=== PATIENT | female | born 1940 | race Caucasian/White ===

== ENCOUNTER → 2017-02-21 | Outpatient (CLI) | payer MEDICARE, OTHER ==
--- NOTE | 2017-02-22 07:58 | RAD ---
Left fingers three views INDICATION: Finger pain small finger IMPRESSION: There is an oblique mildly displaced fractures of the base of the fifth metacarpal. Bones are osteopenic. No phalangeal fracture. No major articular surface disruption noted. Electronically signed by: Codey Hagan MD 02/22/2017 7:58 AM CDT
== END | disposition home or self-care (01) ==
LOC: RAD 08:15
PROVIDERS: ATTEND Orthopaedic Surgery
DX: M79.645 Pain in left finger(s) (principal)

== ENCOUNTER → 2017-03-05 | Outpatient (CLI) | payer OTHER ==
--- NOTE | 2017-03-05 16:41 | RAD ---
EXAM DESCRIPTION: Fingers,Left CLINICAL HISTORY: 76 years Female, FRACTURE COMPARISON: None. FINDINGS: A subtle minimally displaced fracture at the base of the fifth metacarpal is present with slight angulation and displacement noted. Fifth finger is intact and no additional abnormalities are noted. IMPRESSION: Fracture of base of the fifth metacarpal. Electronically signed by: Antoine Locke MD 03/05/2017 4:41 PM CDT
== END | disposition home or self-care (01) ==
LOC: RAD 09:27
PROVIDERS: ATTEND Orthopaedic Surgery
DX: S62.301D Unspecified fracture of second metacarpal bone, left hand, subsequent encounter for fracture with routine healing (principal)

== ENCOUNTER → 2017-03-18 | Outpatient (CLI) | payer OTHER ==
--- NOTE | 2017-03-18 08:47 | RAD ---
EXAM DESCRIPTION: Fingers,Left CLINICAL HISTORY: 76 years, Female, LEFT 5TH MEATCARPAL FX COMPARISON: February 21 FINDINGS: Fracture base of fifth metatarsal again identified. This is barely visualized on images of the fifth digit. Fracture is impacted and slightly medially subluxed. Minimal if any apparent radiographic interval healing IMPRESSION: Stable alignment of impacted fracture proximal fifth metacarpal. Minimal if any apparent radiographic healing Electronically signed by: Arley Cox MD 03/18/2017 8:46 AM CDT
== END | disposition home or self-care (01) ==
LOC: RAD 08:00
PROVIDERS: ATTEND Orthopaedic Surgery
DX: S62.307A Unspecified fracture of fifth metacarpal bone, left hand, initial encounter for closed fracture (principal); X58.XXXA Exposure to other specified factors, initial encounter

== ENCOUNTER → 2017-04-19 | Outpatient (CLI) | payer OTHER ==
--- NOTE | 2017-04-19 15:47 | RAD ---
EXAM DESCRIPTION: Hand,Left 3 Views CLINICAL HISTORY: 76 years Female, CLOSED FX OF 5TH METACARPAL BONE COMPARISON: March 18, 2017 FINDINGS: 3 views of the left hand show cortical irregularity involving the base of the fifth metacarpal likely related to an old healed or healing fracture at this location. No acute fracture or malalignment is seen. No radiopaque foreign body or soft tissue gas. IMPRESSION: Old healed or healing fifth metacarpal base fracture. No acute abnormality. Electronically signed by: Justin Nassar MD 04/19/2017 3:45 PM CDT Workstation: [id number]
== END | disposition home or self-care (01) ==
LOC: RAD 08:46
PROVIDERS: ATTEND Orthopaedic Surgery
DX: S62.307D Unspecified fracture of fifth metacarpal bone, left hand, subsequent encounter for fracture with routine healing (principal)

== ENCOUNTER 2017-05-16 15:12 | Inpatient (IN) | payer MEDICARE, OTHER ==
[2017-05-16] MEDS ORDERED: PANTOPRAZOLE SODIUM IV 40 MG VIAL IV ONE (15:35)
[2017-05-16] MEDS ORDERED: ONDANSETRON INJ 4 MG/2 ML VIAL IV ONE (15:35)
[2017-05-16] MEDS ORDERED: LIDOCAINE VIS-MYLANTA 30 ML UD PO ONE (15:35)
[2017-05-16] MEDS ORDERED: SUCRALFATE 1 GM/10 ML 1 GM UD PO ONE (15:35)
--- NOTE | 2017-05-16 16:02 | RAD ---
EXAM DESCRIPTION: Abdomen Series CLINICAL HISTORY: 76 years Female, epigastric pain COMPARISON: None. FINDINGS: The cardiomediastinal silhouette is unremarkable. There is no airspace consolidation or pleural effusion. There is no free subdiaphragmatic gas or intra-abdominal air fluid level. There is a moderate amount of stool and gas scattered throughout the colon, but the bowel gas pattern is nonobstructive. No suspicious intra-abdominal calcification or mass is identified. Degenerative and postoperative changes are noted in the lumbar spine. IMPRESSION: No obstruction, pneumoperitoneum or other acute intra-abdominal abnormality. Electronically signed by: Justin Nassar MD 05/16/2017 4:00 PM CDT Workstation: [facility]ITALSensicast SystemsEMORY [facility]
--- NOTE | 2017-05-16 17:22 | CT ---
EXAM DESCRIPTION: Abdoment/Pelvis w/o Contrast CLINICAL HISTORY: 76 years Female, epigastric pain, elev bili, amylase and lipase. COMPARISON: None. TECHNIQUE: Transaxial images were obtained without intravenous or oral contrast media. Sagittal and coronal reconstruction was performed.This exam was performed according to our departmental dose-optimization program, which includes automated exposure control, adjustment of the mA and/or kV according to patient size and/or use of iterative reconstruction technique. FINDINGS: A hiatus hernia is observed. The lung bases are clear. The liver and spleen are normal in appearance. A gallstone is observed in the gallbladder. The gallbladder is distended. No adrenal masses are detected. A small ventral hernia is observed anterior to the liver containing fat. Very mild stranding is observed about the body the pancreas and may represent early evidence of pancreatitis. No retroperitoneal adenopathy is observed. Calcific atherosclerotic changes observed in the abdominal aorta without evidence of aneurysmal dilatation. Imaging of the kidneys reveals no evidence of hydronephrosis mass cyst or calcification. A second small ventral hernia is also observed inferiorly containing fat it is near the umbilicus. The uterus and adnexa are unremarkable. No free fluid is observed. The appendix is identified and is normal in appearance. The exam reveals evidence of a posterior fusion in the lower lumbar spine. There is anterior subluxation of L4 on L5. Degenerative changes are observed. IMPRESSION: 1. Hiatus hernia. 2. Cholelithiasis with a distended gallbladder. 3. Very minimal stranding is observed about the body the pancreas and may represent early evidence of pancreatitis. 4. Small ventral hernias are observed containing fat. 5. There is evidence of prior posterior fusion of the lumbar spine with an anterior subluxation of L4 on L5. Electronically signed by: Sonido Bergman MD 05/16/2017 5:20 PM CDT
--- NOTE | 2017-05-16 17:40 | US ---
EXAM DESCRIPTION: Abdomen,Limited CLINICAL HISTORY: elev bili, alk phos, amylase, lipase COMPARISON: None Available. TECHNIQUE: Right upper quadrant ultrasound] FINDINGS: The liver has a normal appearance. There is no intrahepatic bile duct dilatation. The common bile duct measures 8 mm. The gallbladder is distended and has a gallstone within it The pancreas is poorly seen. The upper abdominal aorta and the inferior vena cava are unremarkable. The right kidney is normal in size, shape, and echotexture. IMPRESSION: 1. The common bile duct is mildly dilated measuring 8 mm. 2. The gallbladder is distended and has a gallstone within it. Electronically signed by: Sonido Bergman MD 05/16/2017 5:39 PM CDT
[2017-05-16] MEDS ORDERED: SODIUM CHLORIDE 0.9% 1000ML 1,000 ML IVS ONE (17:47)
[2017-05-16] MEDS ORDERED: HYDROmorphone HCL INJ 2 MG/ML VIAL IV ONE (17:47)
--- NOTE | 2017-05-16 17:53 | ED.PDOC ---
History of Present Illness - General Chief Complaint: Abdominal Pain Stated Complaint: epigastric pain Time Seen by Provider: 05/16/17 15:34 Source: patient, family Exam Limitations: no limitations - History of Present Illness Initial Comments: The patient is a 76-year-old female presenting to the emergency room secondary to epigastric pain along with nausea and 2 episodes of vomiting starting last night. She felt like it was heartburn but the medications were not making it better. She showed up to her primary care doctor today who sent her to the emergency room primarily due to her bradycardia. I gave her a dose of Phenergan and sent her this way. She apparently has a long-standing history of sinus bradycardia with PVCs and has seen Dr. Birmingham in [place] for this who has recommended no intervention. She is not hypotensive. She is not dizzy. She did get a little bit dizzy after the Phenergan shot. No history of pancreatitis. No history of significant gastritis. She does have 2 small known ventral hernias. No evidence of obstruction. She does have some mild constipation seen on x-ray here today. No fevers. No history of any gallbladder or pancreas issues. No recurrent urinary tract infections. Timing/Duration: 24 hours Severity: moderate Improving Factors: nothing Worsening Factors: nothing Associated Symptoms: loss of appetite, malaise, nausea/vomiting Allergies/Adverse Reactions: Allergies NO KNOWN ALLERGY Allergy (Verified 05/16/17 15:37) Review of Systems - Review of Systems Constitutional: States: malaise EENTM: States: no symptoms reported Respiratory: States: no symptoms reported Cardiology: States: no symptoms reported Gastrointestinal/Abdominal: States: abdominal pain, constipation - mild, nausea , vomiting Genitourinary: States: no symptoms reported Musculoskeletal: States: no symptoms reported Skin: States: no symptoms reported Neurological: States: no symptoms reported Endocrine: States: no symptoms reported All other Systems: No Change from Baseline Past Medical History (General) - Patient Medical History Hx Seizures: No Hx Stroke: No Hx Dementia: No Hx Asthma: No Hx of COPD: No Hx Cardiac Disorders: No Hx Congestive Heart Failure: No Hx Pacemaker: No Hx Hypertension: Yes Hx Thyroid Disease: No Hx Diabetes: No Hx Gastroesophageal Reflux: No Hx Renal Disease: No Hx of HIV: No Hx MRSA: No - Social History Hx Tobacco Use: No - Triage Comment ED Triage Comment: Abd pain that started yesterday. Today had gotten worse was sent to ER from urgent care. Family Medical History - Family History Mother Family History: Unknown Living Status: Unknown Physical Exam - Physical Exam General Appearance: Alert, No apparent distress Eye Exam: bilateral normal Ears, Nose, Throat: hearing grossly normal, normal ENT inspection, normal pharynx Neck: non-tender, full range of motion, supple Respiratory: lungs clear, normal breath sounds, no respiratory distress, no accessory muscle use Cardiovascular/Chest: normal peripheral pulses, no edema, bradycardia Peripheral Pulses: radial,right: 2+, radial,left: 2+, dorsalis pedis,right: 2+, dorsalis pedis,left: 2+ Gastrointestinal/Abdominal: soft, other - epigastric discomfort palpation. No definite palpable mass. Rectal Exam: deferred Back Exam: normal inspection, no CVA tenderness Extremity: normal range of motion, non-tender, normal inspection, no pedal edema , normal capillary refill Neurologic: lighting designer II-XII nml as tested, alert - she is actually a little drowsy due to the Phenergan, normal mood/affect, oriented x 3 Skin Exam: normal color Comments: Vital Signs - 24 hr 05/16/17 05/16/17 15:15 17:26 Temperature 98.2 F Pulse Rate [ 51 L 56 L Right] Respiratory 16 14 Rate Blood Pressure 134/50 139/60 [Right Arm] O2 Sat by Pulse 98 96 Oximetry Progress - Progress Progress: 05/16/17 17:55 the patient is a 76-year-old female presenting with epigastric pain with nausea and vomiting for less than 24 hours. This is most likely due to pancreatitis. CT scan is consistent with this. Right upper quadrant ultrasound does not at this time definitively indicate any distal obstructing common bile duct stone as the cause. There is no elevation in the ALT or AST at this time. there is a mild elevation of alkaline phosphatase and a mild elevation of the bilirubin level. The patient is being started on IV fluids currently. She is also receiving a small dose of an IV pain medication. The IM Phenergan that she received at the clinic did make her very drowsy. Possibly smaller doses may be more functional for her over the next few days. Obviously if liver function tests worsen then repeat evaluation may be warranted for any distal obstructing pathology triggering pancreatitis. I see no evidence of overt infection at this time. Antibiotics are not being started. The patient is being made nothing by mouth except for water. Admit for hydration and pain and nausea control. - Results/Orders Results/Orders: Laboratory Tests 05/16/17 05/16/17 05/16/17 15:30 15:30 15:30 WBC 11.3 H RBC 5.33 Hgb 15.5 Hct 46.6 MCV 87.5 MCH 29.1 MCHC 33.2 RDW 14.5 Plt Count 260 MPV 9.4 Absolute Neuts (auto) 8.60 H Absolute Lymphs (auto) 1.80 Absolute Monos (auto) 0.70 Absolute Eos (auto) 0.10 Absolute Basos (auto) 0.10 Neutrophils % 76.4 Lymphocytes % 16.3 L Monocytes % 5.8 Eosinophils % 0.7 L Basophils % 0.8 PT 10.6 INR 0.940 PTT (SP) 33.0 Sodium 141 Potassium 3.8 Chloride 99 L Carbon Dioxide 29 Anion Gap 16.8 BUN 25 H Creatinine 1.25 BUN/Creatinine Ratio 20.0 Random Glucose 124 H Serum Osmolality 287.1 Calcium 9.4 Magnesium 2.2 Total Bilirubin 2.8 H* AST 64 H ALT 42 Alkaline Phosphatase 232 H Creatine Kinase 130 CK-MB (CK-2) 3.2 CK-MB (CK-2) % Not Reportable Troponin I < 0.02 B-Natriuretic Peptide 154.0 H Serum Total Protein 7.6 Albumin 4.1 Globulin 3.5 Albumin/Globulin Ratio 1.2 Amylase 273 H* Lipase 653 H Urine Color Urine Appearance Urine pH Ur Specific [place] Urine Protein Urine Glucose (UA) Urine Ketones Urine Blood Urine Nitrite Urine Bilirubin Urine Urobilinogen Ur Leukocyte Esterase Urine RBC Urine WBC Ur Epithelial Cells Urine Bacteria 05/16/17 16:00 WBC RBC Hgb Hct MCV MCH MCHC RDW Plt Count MPV Absolute Neuts (auto) Absolute Lymphs (auto) Absolute Monos (auto) Absolute Eos (auto) Absolute Basos (auto) Neutrophils % Lymphocytes % Monocytes % Eosinophils % Basophils % PT INR PTT (SP) Sodium Potassium Chloride Carbon Dioxide Anion Gap BUN Creatinine BUN/Creatinine Ratio Random Glucose Serum Osmolality Calcium Magnesium Total Bilirubin AST ALT Alkaline Phosphatase Creatine Kinase CK-MB (CK-2) CK-MB (CK-2) % Troponin I B-Natriuretic Peptide Serum Total Protein Albumin Globulin Albumin/Globulin Ratio Amylase Lipase Urine Color Yellow Urine Appearance Clear Urine pH 7.0 Ur Specific [place] 1.015 Urine Protein Negative Urine Glucose (UA) Negative Urine Ketones Negative Urine Blood Negative Urine Nitrite Negative Urine Bilirubin Negative Urine Urobilinogen 1.0 Ur Leukocyte Esterase Negative Urine RBC 0 Urine WBC 0 Ur Epithelial Cells 0-1 Urine Bacteria 0 abdominal x-ray shows mild constipation. CT scan and right upper quadrant ultrasound show probable mild pancreatitis. There is mild distention of the gallbladder with a stone inside of it. No obvious thickening of the gallbladder wall or significant pericholecystic fluid. There is mild dilation of the common bile duct at 8 mm. No definite distal stone.the patient has other chronic findings on the CT scan including 2 small ventral hernias containing fat only Departure - Departure Clinical Impression: Pancreatitis Qualifiers: Chronicity: acute Pancreatitis type: unspecified pancreatitis type Acute pancreatitis complication: no infection or necrosis Qualified Code(s): K85.90 - Acute pancreatitis without necrosis or infection, unspecified Disposition: Admit Patient Decision To Admit - Decistion To Admit Decision to Admit Reason: Medical Nature Decision to Admit Date: 05/16/17 Decision to Admit Time: 17:59
--- NOTE | 2017-05-16 19:49 | HP ---
SUPERVISING PHYSICIAN: Antoine Pineda MD CHIEF COMPLAINT: Epigastric pain. HISTORY OF PRESENT ILLNESS: This is a 76-year-old female patient who lives in [place]. She is a patient of [facility]. She presented to the Emergency Room from [facility] due to epigastric pain along with some nausea and vomiting. She stated that the epigastric abdominal pain started a couple of weeks ago, but the evening prior to admission, she actually had some nausea and vomiting and she had not had that before. She denied any hematemesis and she did say the only problem she has had lately is that she had some periods of low heart rate heart rate and she had had a workup with Dr. Lowery in [place]. She received some fluids in the Emergency Room as well as some pain medication. Her abdominal ultrasound per radiologic interpretation showed common bile duct mildly distended measuring 8 mm and the gallbladder was distended with a gallstone in it. Her abdominal CT per radiologic interpretation showed 1) hiatal hernia, 2) cholelithiasis with a distended gallbladder, 3) very minimal stranding observed about the body of the pancreas and may represent early evidence of pancreatitis, 4) small ventral hernias observed containing fat, 5) evidence of a prior posterior fusion of the lumbar spine with an anterior subluxation of L4 and L5. Her abdominal x-ray per radiologic interpretation shows no obstruction, pneumoperitoneum or other acute intraabdominal abnormality. Lab in the Emergency Room showed an elevated WBC of 11.3 with 76.4% neutrophils. Hemoglobin and hematocrit were stable at 15.5 and 46.6. Sodium 141, potassium 3.8, chloride 99, carbon dioxide 29, BUN 25, creatinine 1.25, glucose 124, magnesium 2.2, total bilirubin 2.8, AST 64, ALT 42 , alkaline phosphatase 232. Cardiac enzymes were negative. BNP was 154. Amylase 273, lipase 653. Urinalysis was basically within normal limits. I was called for admission for pancreatitis. PAST MEDICAL HISTORY: 1. Hypertension, presently on no medications, diet and exercise controlled. 2. Recent history of bradycardia. She was just recently evaluated by Dr. Lowery, hot wire glass tube cutter, in [place]. 3. History of diverticulitis many years ago, but has had no recent problems. PAST SURGICAL HISTORY: 1. Colon resection in 1999 due to diverticulitis. 2. Two knee replacements. 3. Laminectomy. 4. Tonsillectomy. CURRENT MEDICATIONS: Per the EMR and awaiting verification. ALLERGIES: PENICILLIN. SOCIAL HISTORY: She is . She lives in [place]. She denies any tobacco use. She drinks an occasional alcoholic beverage. She denies any illicit drug use. She has two children. REVIEW OF SYSTEMS: GENERAL: Negative for fever, fatigue or chills. HEENT: Negative for ear pain, vision changes, sinus symptoms. or sore throat. RESPIRATORY: Negative for wheezing, coughing or dyspnea. CARDIAC: Negative for chest pain, palpitations or tachycardia. GASTROINTESTINAL: Per history of present illness. MUSCULOSKELETAL: Positive for mild arthralgias and chronic back pain. GENITOURINARY: Negative for hematuria, dysuria or polyuria. NEUROLOGIC: Negative for headache, dizziness, or seizures. PHYSICAL EXAMINATION: VITAL SIGNS: Afebrile. Heart rate 56. Blood pressure 139/60. Respiratory rate 14. O2 saturation 96%. GENERAL: This is a 76-year-old female who looks younger than her stated age. HEENT: Normocephalic, atraumatic. Pupils are equal and reactive. Oropharynx clear. NECK: Supple without mass. No jugular venous distention. RESPIRATORY: Clear to auscultation bilaterally. CHEST: There is equal rise and fall of the chest with inspiration and expiration. CARDIOVASCULAR: Bradycardic rate and regular rhythm. ABDOMEN: Soft, mildly tender to the periumbilical and epigastric area. There is no rebound tenderness, no guarding. Bowel sounds are positive. EXTREMITIES: No cyanosis, clubbing or edema. NEUROLOGIC: Awake, alert and oriented times three. LABORATORY: Labs and films are as per the history of present illness. ASSESSMENT: 1. Acute pancreatitis with elevated pancreatic enzymes and stranding noted on CT scan. 2. Epigastric abdominal pain, most likely secondary to the pancreatitis. 3. Cholelithiasis with distended gallbladder and mildly dilated common bile duct at 8 mm. 4. History of diverticulitis with colon resection in 1999. 5. Recent history of bradycardia, recently evaluated by Dr. Lowery, hot wire glass tube cutter in [place]. PLAN: We will admit the patient to the hospital. We will hold her home medications for now and place her on bowel rest. I have given her IV fluids and pain medication. I will consult Dr. Dudley, general surgeon, in the morning. We will repeat her labs tomorrow and monitor the patient closely and followup as needed. Dr. Pineda is the collaborating physician and available for consultation. #[id number] [facility]
[2017-05-16] MEDS ORDERED: PANTOPRAZOLE SODIUM IV 40 MG VIAL IV SCH (23:00)
[2017-05-16] MEDS ORDERED: ENOXAPARIN SODIUM 40 MG/0.4 ML SYG SUBCU SCH (23:00)
[2017-05-16] MEDS: IV SET AND CAP CHANGE INJ INJ SCH (23:27)
[2017-05-17] MEDS ORDERED: SODIUM CHLORIDE 0.9% (FLUSH) 10 ML SYG IV SCH (09:00)
[2017-05-17] MEDS: KCL 20MEQ/D5 1/2NS 1,000 ML IVS PRN ×2 (11:10→20:43)
--- NOTE | 2017-05-17 16:43 | CONS ---
DATE OF CONSULTATION: 05/17/17 REFERRING PHYSICIAN: Hospitalist Service HISTORY OF PRESENT ILLNESS: The patient is a 76 year-old female who was admitted through the Emergency Room yesterday with upper abdominal pain with nausea and vomiting. She said she had been having pain for a couple of weeks but it worsened prior to admission and developed the nausea and vomiting. She denied hematemesis, melenic stools or hematochezia. She had no history of fatty food intolerance. No history of pancreatitis or hepatitis. PAST MEDICAL HISTORY: 1. Hypertension controlled with diet and exercise. 2. Bradycardia which had been evaluated by Dr. Lowery in [place]. 3. History of diverticulitis followed by colon resection in 2001. PAST SURGICAL HISTORY: 1. Colon resection in 2001. 2. Bilateral knee replacement. 3. Lumbar laminectomy. 4. Tonsillectomy. CURRENT MEDICATIONS: Listed in the nursing records. ALLERGIES: PENICILLIN. SOCIAL HISTORY: The patient is . Denied history of tobacco abuse. She drinks insignificantly. She has 2 children. Lives in [place]. REVIEW OF SYSTEMS: No fever or chills. Denies shortness of breath, chest pain , productive cough. Denies hematuria, dysuria or polyuria. PHYSICAL EXAMINATION: GENERAL: The patient is awake, alert and cooperative currently. She is in no acute distress. HEENT: Sclera are somewhat muddy. Mucous membranes are moist. NECK: Without adenopathy. BACK: Without CVA tenderness. CHEST: Reveals equal breath sounds bilaterally. HEART: Regular rhythm. ABDOMEN: Soft. There is minimal right upper quadrant tenderness without mass or guarding. Bowel sounds are active. PELVIC AND RECTAL: Examinations are deferred. LABORATORY: White count 10.2 down from 11.3 yesterday, hemoglobin 14.4 down from 15, platelet count 220,000. She has 70% neutrophils, there was 76% yesterday. Chemistries reveal potassium 3.7, creatinine 1.14 which is down from 1.29. Bilirubin is down to 1.5 from 2.8. AST is decreased, alkaline phosphatase is decreased but still abnormal. Lipase has decreased from 653 to 181, amylase has gone up slightly from 273 to 292. Ultrasound reveals gallstones with an 8 [address] common bile duct. CT scan reveals some inflammatory changes in the areas of the pancreas. IMPRESSION: 1. Biliary pancreatitis. 2. Cholelithiasis. History is most consistent with the passing of a common duct stone or a ball valve with a common duct stone. 3. History of bradycardia. 4. Hypertension. 5. Colon malignancy. PLAN: Continue bowel rest. Recheck her lab in the morning and consider laparoscopic cholecystectomy prior to discharge. #[id number] [facility]
--- NOTE | 2017-05-17 17:04 | PN ---
DATE: 05/17/17 SUPERVISING PHYSICIAN: Antoine Pineda M.D. SUBJECTIVE: The patient is sitting up in her chair in her room. She has no complaints of nausea, vomiting, abdominal pain or shortness of breath. She complains of some mild neck pain, but feels that it is most likely due to lying in bed for so long. She asked several questions about having her gallbladder removed which is planned for maybe tomorr or Saturday per Dr. Dudley, general surgeon. We discussed it at length and she agrees to have her gallbladder removed at the recommendation of Dr. Dudley. OBJECTIVE: VITAL SIGNS: She is afebrile, heart rate 51, blood pressure 110/66, respiratory rate 18, O2 sat is 94% on 2 liters nasal cannula. RESPIRATORY: Clear to auscultation bilaterally. CARDIAC: Regular rate and rhythm. ABDOMEN: Soft, nondistended, non-tender. Bowel sounds are positive. EXTREMITIES: No cyanosis, clubbing or edema. NEUROLOGIC: She is awake, alert and oriented times three. LABORATORY: White count is down to 10.2 with a stable hemoglobin of 14.4 and hematocrit 43.3. Neutrophils are 70.1. Electrolytes are basically within normal limits with bilirubin improving to 1.5. AST has improved to 655, alkaline phosphatase has also improved to 187. Amylase is slightly elevated at 292 and lipase is down to 181. All other labs and films have been reviewed via the EMR. ASSESSMENT: 1. Acute pancreatitis with elevated pancreatic enzymes and stranding noted on CT scan. 2. Cholelithiasis, distended gallbladder and mildly dilated common bile duct at [address] Dudley has seen the patient and he plans on cholecystectomy in the next day or so. 3. Epigastric abdominal pain most likely secondary to pancreatitis that has now resolved. 4. History of diverticulitis with colon resection in 1999. 5. Recent history of bradycardia recently evaluated by Dr. Lowery, coupler in [place]. PLAN: We will continue present supportive care. I will keep her NPO at midnight and continue her IV fluids. I have ordered AM lab, including lipase and amylase for in the morning. I have discontinued her Lovenox after her evening dose in anticipation of a cholecystectomy tomorrow. Will defer to the surgical issues per Dr. Dudley. We will continue to monitor the patient closely and follow as needed. Dr. Pineda is the collaborating physician available for consultation. #[id number] [facility]
[2017-05-17] MEDS: HYDROmorphone HCL INJ 2 MG/ML VIAL IV PRN (17:05)
[2017-05-17] MEDS ORDERED: ENOXAPARIN SODIUM 40 MG/0.4 ML SYG SUBCU ONE (19:57)
[2017-05-17] MEDS ORDERED: PANTOPRAZOLE SODIUM IV 40 MG VIAL ONE (19:57)
[2017-05-17] MEDS: PANTOPRAZOLE SODIUM IV 40 MG VIAL IV SCH (20:43)
[2017-05-17] MEDS ORDERED: ENOXAPARIN SODIUM 40 MG/0.4 ML SYG SUBCU SCH (21:00)
[2017-05-18] MEDS: SODIUM CHLORIDE 0.9% (FLUSH) 10 ML SYG IV PRN ×3 (02:06→20:35)
[2017-05-18] MEDS: HYDROmorphone HCL INJ 2 MG/ML VIAL IV PRN ×3 (02:06→09:36)
[2017-05-18] MEDS: KCL 20MEQ/D5 1/2NS 1,000 ML IVS PRN ×2 (06:13→17:26)
[2017-05-18] MEDS ORDERED: KETOROLAC TROMETHAMINE INJ 30 MG/ML VIAL ONE (11:17)
[2017-05-18] MEDS ORDERED: KETOROLAC TROMETHAMINE INJ 30 MG/ML VIAL IV ONE (11:17)
[2017-05-18] MEDS ORDERED: ENOXAPARIN SODIUM 30 MG/0.3 ML SYG SUBCU ONE (11:18)
[2017-05-18] MEDS ORDERED: tiZANidine 4 MG TAB PO PRN (11:22)
[2017-05-18] MEDS ORDERED: ceFAZolin SODIUM 2 GM in SODIUM CHLORIDE 0.9% 100ML 100 ML IVPB SCH (11:30)
[2017-05-18] MEDS: ONDANSETRON INJ 4 MG/2 ML VIAL IV PRN (11:32)
[2017-05-18] MEDS ORDERED: tiZANidine 4 MG TAB PO ONE (13:00)
--- NOTE | 2017-05-18 17:44 | PN ---
DATE: 05/18/17 SUPERVISING PHYSICIAN: Antoine Pineda M.D. SUBJECTIVE: The patient is resting in bed. She denies any abdominal pain today. She has had no nausea but she has been NPO. She remains afebrile. We are awaiting a final decision as to whether or not she is going to go to surgery this morning for a laparoscopic cholecystectomy. OBJECTIVE: VITAL SIGNS: Temperature 97.7, pulse 62, blood pressure 144/59, respiratory rate 18, satting 95% on room air. I's and O's show a positive balance of 1175 with 2125 in, 950. Weight 89.9 kg. CHEST: Lungs are clear to auscultation. HEART: Regular rate and rhythm. ABDOMEN: Soft, non-tender. Positive bowel sounds. EXTREMITIES: No clubbing, cyanosis or edema. NEUROLOGIC : She is alert and oriented times three. LABORATORY: White count 8.8, hemoglobin 12.8, hematocrit 38.5, platelet count 190,000. Differential is within normal limits. Chemistries show normal electrolytes with potassium 4.0, BUN16, creatinine 0.84, glucose 110. Total bilirubin is 1.1, alkaline phosphatase is down to 155. Pancreatic enzymes, amylase and lipase are improved with amylase down to 107, lipase 166. ASSESSMENT: 1. Biliary pancreatitis showing improvement. 2. Cholelithiasis felt to be secondary to a common duct stone awaiting laparoscopic cholecystectomy performed by Dr. Dudley. 3. History of bradycardia by Dr. Lowery. 4. Hypertension. 5. History of diverticulitis with colon resection in 1999. PLAN: Will await Dr. Dudley's decision as to whether or not the patient goes to surgery this morning for a laparoscopic cholecystectomy. Until then, if she does go to surgery, the decision was made to wait. The patient will remain NPO. Will continue to defer surgical issues to Dr. Dudley and await as to whether or not surgery is performed today. Until then, will continue to follow the patient closely and treat appropriately. #[id number] and [id number] [facility]
[2017-05-18] MEDS: PANTOPRAZOLE SODIUM IV 40 MG VIAL IV SCH (20:33)
[2017-05-19] MEDS: ONDANSETRON INJ 4 MG/2 ML VIAL IV PRN ×2 (03:50→15:58)
[2017-05-19] MEDS: KCL 20MEQ/D5 1/2NS 1,000 ML IVS PRN ×2 (03:51→17:52)
[2017-05-19] MEDS: HYDROmorphone HCL INJ 2 MG/ML VIAL IV PRN (03:55)
[2017-05-19] MEDS ORDERED: SODIUM CHLORIDE 0.9% 100ML 100 ML IVPB ONE (06:13)
[2017-05-19] MEDS ORDERED: ceFAZolin SODIUM 1 GM VIAL ONE (06:13)
[2017-05-19] MEDS ORDERED: HEPARIN SODIUM (PORCINE) 10,000 UNITS/ML VIAL ONE (08:33)
[2017-05-19] MEDS ORDERED: BUPIVACAINE 0.25% W/EPI 50 ML VIAL INJ ONE (08:33)
[2017-05-19] MEDS ORDERED: LACTATED RINGERS 1,000 ML ONE (08:50)
[2017-05-19] MEDS ORDERED: fentaNYL CITRATE INJ 50 MCG/ML AMP ONE (08:50)
[2017-05-19] MEDS ORDERED: ROCURONIUM BROMIDE 10 MG/ML VIAL ONE (08:50)
[2017-05-19] MEDS ORDERED: LIDOCAINE 2 % GEL 5 ML TUBE TOP ONE (08:51)
[2017-05-19] MEDS ORDERED: ATROPINE SULFATE 0.4 MG/ML 1ML VIAL IV ONE (09:00)
[2017-05-19] MEDS ORDERED: PROPOFOL 200 MG/20 ML VIAL IV ONE (09:00)
[2017-05-19] MEDS ORDERED: NEOSTIGMINE METHYLSULFATE 1 MG/ML ML IV ONE (09:00)
[2017-05-19] MEDS ORDERED: ONDANSETRON INJ 4 MG/2 ML VIAL IV PRN (11:06)
[2017-05-19] MEDS ORDERED: HYDROmorphone HCL INJ 2 MG/ML VIAL IV PRN (11:06)
[2017-05-19] MEDS: MORPHINE SULFATE INJ 10 MG/ML VIAL ONE ×2 (11:58→12:05)
[2017-05-19] MEDS: CYCLOBENZAPRINE HCL 5 MG TAB PO PRN (15:58)
--- NOTE | 2017-05-19 16:52 | PN ---
DATE: 05/19/17 SUPERVISING PHYSICIAN: Antoine Pineda M.D. SUBJECTIVE: The patient is seen immediately postoperative from recovery after a laparoscopic cholecystectomy performed by Dr. Dudley. The patient was alert and oriented, and appeared to be comfortable with good pain control. She had no nausea and remains afebrile. OBJECTIVE: VITAL SIGNS: Temperature 98.2, pulse 65, blood [id number]/68, respirations 12, satting 98% on 2 liters nasal cannula at rest. I's and O's show a positive balance of 3440 with 440 in, 600 out. Weight is 90.0 kg. CHEST : Clear to auscultation, just slightly diminished towards the bases. HEART: Regular rate and rhythm. ABDOMEN: Soft, tender over the surgical sites which were clean and dry. Bowel sounds were hypoactive and distant. EXTREMITIES: No clubbing, cyanosis or edema. NEUROLOGIC: She was alert and oriented times three. LABORATORY: No additional laboratory studies were performed prior to surgery. RADIOLOGY: None performed prior to surgery. ASSESSMENT: 1. Biliary pancreatitis. 2. Cholelithiasis with postoperative day zero for laparoscopic cholecystectomy. 3. History of bradycardia followed by Dr. Lowery. 4. Hypertension. 5. History of diverticulitis with colon resection in 1999. PLAN: The patient will be followed in the postoperative recovery phase and monitored closely. All surgical postoperative decisions and plan referred to Dr. Dudley. Will monitor the patient medically as needed and anticipate the patient's discharge at Dr. Dudley's decision. Until then, will continue to monitor the patient closely and treat appropriately. #[id number] [facility]
--- NOTE | 2017-05-19 17:16 | OP ---
DATE OF PROCEDURE: 05/19/17 PREOPERATIVE DIAGNOSIS: 1. Biliary pancreatitis. 2. Cholelithiasis. POSTOPERATIVE DIAGNOSIS: 1. Biliary pancreatitis. 2. Cholelithiasis. 3. Subacute cholecystitis. PROCEDURE: 1. Laparoscopic cholecystectomy with cholangiography SURGEON: Dean Dudley M.D. [employer] AGENT: None. ANESTHESIA: Local infiltration of 0.25% Marcaine with epinephrine and general endotracheal anesthesia. INDICATION FOR SURGERY: The patient is a 76 year-old female who presented to the Emergency Room with upper abdominal discomfort, nausea and vomiting and was found to have gallstones, inflammatory changes involving the pancreas, elevated amylase, lipase and liver functions including a bilirubin of over 2. She was admitted and put to bowel rest. Her symptoms resolved over the next 48 hours and her liver enzymes and pancreatic enzymes were still mildly elevated yesterday, but almost within the normal range and her symptoms had essentially resolved. The risks, benefits, and alternatives to laparoscopic cholecystectomy with cholangiography were discussed and accepted by the patient in the presence of her and a daughter. She was brought to the Surgical Suite today for same. FINDINGS AT TIME OF PROCEDURE: The gallbladder wall was edematous, thickened and in some areas somewhat necrotic-appearing. Intraoperative cholangiography revealed a dilated common duct but no filling defects and easy flow into the duodenum. DESCRIPTION OF PROCEDURE: After adequate general endotracheal anesthesia was obtained, the patient was prepped and draped in the usual sterile manner. She was given a dose of 2 grams of Ancef. A surgical time out was taken. The supraumbilical area was infiltrated with local anesthesia and a vertical incision was made with a sharp knife. Dissection was carried down through the skin and subcutaneous tissue to the midline fascia using blunt dissection. Traction sutures were placed on either side of the midline. A small incision was made in the midline fascia and the peritoneum was opened bluntly. Gin trocar was introduced under direct vision into the abdominal cavity and fixed in place with a 20 mL balloon. CO2 was then insufflated until a pressure of 12 mmHg was reached and the abdomen was tympanitic in all four quadrants. When this was done, the laparoscope was introduced. The abdomen was inspected with the previously noted findings. The patient was then placed in reverse Trendelenburg position, turned to the left side. The upper abdominal ports were placed under direct vision in the usual manner. The gallbladder was grasped, retracted anteriorly and laterally. The neck of the gallbladder was retracted laterally. The triangle of Calot was then explored. The cystic artery was identified anteriorly and it was clipped proximally, distally and divided. The cystic duct was then identified, dissected free and a clip was placed on the proximal cystic duct, however, the gallbladder wall which was quite edematous, began leaking and most of the bile was aspirated using the suction device. At this point, the cystic duct had been clipped proximally. A small incision was made in the cystic duct. The cholangiogram catheter was introduced through a separate stab wound in the right upper quadrant, introduced into the cystic duct and clipped in place. Cholangiograms were then taken using fluoroscopy which did reveal no filling defects and free flow into the duodenum. In fact, the patient had to be put in the Trendelenburg position to allow flow to go into the left hepatic duct. When this was done, the cystic duct was hemoclipped three times distally and divided between the hemoclips. The cystic artery had previously been divided. The gallbladder was dissected free from the gallbladder bed of the liver. A second artery was identified in the superior aspect of the gallbladder bed of the liver and this was clipped. The gallbladder then was placed in an EndoCatch bag and removed from the supraumbilical port site in the usual manner under direct vision. When this was done, the subhepatic space and subphrenic space were irrigated copiously with saline. The effluent was noted to be clear. There was some oozing from the gallbladder bed of the liver which was easily controlled with electrocautery. When this was done, again the subhepatic space and subphrenic space were irrigated copiously with saline. The effluent was noted to be clear. The valdemar hepatis was inspected and no bile leak or bleeding was identified. The gallbladder bed of the liver showed good hemostasis. The upper abdominal ports were removed under direct vision. Good hemostasis was noted. At this point, the CO2, the laparoscope and the supraumbilical port were removed. The supraumbilical port site fascia was approximated with a single [id number] suture of 0 Vicryl. Subcutaneous tissue was irrigated with saline. Skin edges were approximated with 4-0 Vicryl subcuticular sutures , benzoin and Steri-Strips. Sterile dressings were applied. The patient was awakened and taken to the Recovery Room in good and stable condition. Estimated blood loss was 50 to 75 mL. All sponge, needle and instrument counts were correct. #[id number] [facility]
[2017-05-19] MEDS: HYDROcodone 5MG/APAP 325MG 1 EA TAB PO PRN (17:47)
[2017-05-19] MEDS: IV SET AND CAP CHANGE INJ INJ SCH (23:25)
[2017-05-20] MEDS: HYDROcodone 5MG/APAP 325MG 1 EA TAB PO PRN (02:32)
[2017-05-20] MEDS: KCL 20MEQ/D5 1/2NS 1,000 ML IVS PRN (03:49)
[2017-05-20] MEDS ORDERED: PANTOPRAZOLE SODIUM TAB 40 MG PO ONE (05:49)
[2017-05-20] MEDS: CYCLOBENZAPRINE HCL 5 MG TAB PO PRN (06:23)
[2017-05-20] MEDS ORDERED: PANTOPRAZOLE SODIUM TAB 40 MG PO SCH (07:00)
[2017-05-20 12:47] VITALS: BP 124/63; TEMP 98.6; O2SAT 98
[2017-05-21] MEDS ORDERED: PANTOPRAZOLE SODIUM TAB 40 MG PO SCH (06:30)
--- NOTE | 2017-05-26 19:08 | DS ---
SUPERVISING PHYSICIAN: Desmond Ogden M.D. DISCHARGE DIAGNOSIS: 1. Biliary pancreatitis, improved after IV fluids with normalized pancreatic enzymes. 2. Cholelithiasis, postoperative day 1 for laparoscopic cholecystectomy. 3. History of bradycardia followed by Dr. Lowery. 4. Hypertension. 5. History of diverticulitis with colon resection in 1999. HISTORY OF PRESENT ILLNESS: Ms. Yang is a 76 year-old female patient who lives in [place]. She is a patient of [facility]. She presented to the Emergency Room from [facility] due to epigastric pain along with some nausea and vomiting. She stated that the epigastric abdominal pain started several weeks previously, but on the evening prior to admission she actually had some nausea and vomiting, and she had not had any of that before. She denied hematemesis and she did say that the only problem she was having lately was that she had had some period of low heart rate and had been worked up by Dr. Lowery in [place]. She received some fluids in the Emergency Department as well as some pain medication. Her abdominal ultrasound per radiology interpretation showed the common bile duct mildly distended measuring 8 mm with the gallbladder distended with a gallstone in it. Abdominal CT per radiology interpretation showed hiatal hernia, cholelithiasis with distended gallbladder, very minimal stranding observed about the body of the pancreas which could represent early evidence of pancreatitis, and small ventral hernias observed containing fat, prior posterior fusion of the lumbar spine with an anterior subluxation of L4 and L5. Abdominal x-ray per radiology interpretation showed no obstruction, pneumoperitoneum or acute intraabdominal abnormalities. Labs in the Emergency Room showed an elevated white count of 11.3 with a left shift. Hemoglobin and hematocrit were stable at 15.5 and 42.6 with sodium 141, potassium 3.8, BUN 25, creatinine 1.25, magnesium 2.2. Cardiac enzymes were negative. Amylase and lipase were elevated with amylase of 273, lipase 53. Urinalysis was within normal limits. The patient was then admitted for pancreatitis and surgical consultation with Dr. Dudley. LABORATORY: Initial white count 11.3, after surgery and prior to discharge was 9.5. Hematocrit and hemoglobin were stable with hemoglobin 12.8, hematocrit 38.4 at discharge, platelet count 195,000. Differential initially showed slight left shift which resolved after surgery. Coagulation studies showed to be within normal limits. Chemistries initially showed just a low chloride, otherwise within normal limits on admission with an elevated BUN 25, creatinine 1.25. Initial total bilirubin was 2.8 with AST of 54, ALT 42, alkaline phosphatase was elevated at 232 with amylase being 273 and lipase 653. Prior to discharge and after surgery, her liver functions had normalized except for alkaline phosphatase that was still elevated at 127. Amylase had normalized to 26, lipase was down to 22. Urinalysis showed to be within normal limits. MICROBIOLOGY: There were no specimens taken. RADIOLOGY: She had multiple radiographic studies in the Emergency Department, one included an abdominal x-ray and per radiology interpretation there was no obstruction, pneumoperitoneum or acute intra-abdominal abnormality. She also had an abdominal/pelvic CT without contrast and per impressions of radiology there was note of a hiatal hernia, cholelithiasis within the gallbladder, and very minimal stranding observed within the body of the pancreas which may represent early evidence of pancreatitis. There was also note of a small ventral hernia containing fat and evidence of prior posterior fusion of the lumbar spine with anterior subluxation of L4 and L5. She also had an abdominal ultrasound and per radiology interpretation there was noted of the common bile duct which was dilated measuring 8 mm, the gallbladder was distended with a gallstone within it. No additional radiographic studies were obtained other than what was done in surgical consultation with Dr. Dudley. Please refer to his operative notes for full details and description. PROCEDURES: 1. Laparoscopic cholecystectomy with cholangiography as per Dr. Dudley. Please refer to his operative notes for full details. HOSPITAL COURSE: Ms. Yang was admitted as noted on 05/16/17 for acute pancreatitis and cholelithiasis, and acute cholecystitis. She was started on fluids. She showed good improvement in her pancreatic enzymes and after which a consultation with Dr. Dudley, the decision was made with agreement with the patient for a laparoscopic cholecystectomy. The patient was taken to surgery on 05/19/17 for a laparoscopic cholecystectomy and cholangiography as noted in the Operative Report. No major complications was noted. The patient recovered and on postoperative day 1, advanced diet and was tolerating diet well with no nausea or vomiting and no additional pain. She was felt well enough to be discharged to continue in the outpatient setting. The patient did have some mild muscle spasms to the left side of her neck that were treated with Flexeril and the patient showed good response to medication. She was also utilizing heat pads as needed and was showing no worsening of neck pain prior to discharge , and was actually showing improvement and was feeling better. PLAN: Ms. Yang was discharged on 05/20/17 with instructions to have close clinical followup with Dr. Dudley as scheduled and to resume home medication as instructed per her home medication list, and to return to the hospital as needed. She is to see Dr. Dudley on 05/29/17 at 11:00 AM. Diet at discharge was a low fat low cholesterol gallbladder diet as per Dr. Dudley's instructions. Activity was as per Dr. Dudley's instructions. Walking as tolerated, but no strenuous activity or lifting. She was to shower but no tub baths. She was to call Dr. Dudley's office with any questions or any changes in condition, or return to the hospital. At discharge, initial prescriptions included: 1. Flexeril 5 mg 2 times daily for neck spasms, #15. All other medications prior to admission were continued. Discharge condition was stable and improved. #[id number] [facility]
== END 2017-05-20 10:18 | disposition home or self-care (01) | DRG 418 ==
LOC: ER 15:12 → OBSVTOIN 19:48 → MS 19:48
PROVIDERS: ADMIT Nurse Practitioner Acute Care; ATTEND Nurse Practitioner Family
PROC: BF13YZZ Fluoroscopy of Gallbladder and Bile Ducts using Other Contrast (ICD-10-PCS; 2017-05-19)
PROC: 0FT44ZZ Resection of Gallbladder, Percutaneous Endoscopic Approach (ICD-10-PCS; principal; 2017-05-19 09:00)
DX: K85.10 Biliary acute pancreatitis without necrosis or infection (principal); K80.18 Calculus of gallbladder with other cholecystitis without obstruction; R00.1 Bradycardia, unspecified; I10 Essential (primary) hypertension; K21.9 Gastro-esophageal reflux disease without esophagitis; E66.9 Obesity, unspecified; Z96.653 Presence of artificial knee joint, bilateral; Z79.82 Long term (current) use of aspirin; Z88.0 Allergy status to penicillin; Z79.899 Other long term (current) drug therapy; Z68.31 Body mass index [BMI] 31.0-31.9, adult

== ENCOUNTER → 2017-08-05 | Outpatient (CLI) | payer OTHER ==
--- NOTE | 2017-08-05 18:26 | CT ---
EXAM: Abdoment/Pelvis w/o Contrast CLINICAL INDICATION: 76-year-old female with epigastric abdominal pain. COMPARISON: CT abdomen and pelvis 05/16/2017. EXAMINATION: CT of the abdomen and pelvis was performed without intravenous or oral contrast. Multiplanar reformatted images were provided. This exam was performed according to our departmental dose optimization program which includes use of automated exposure control, adjustment of the mA and/or kV according to patient size and/or use of iterative reconstruction technique. FINDINGS: Evaluation of solid organ pathology is limited secondary to lack of intravenous contrast. Within these limitations, the following observations are made. Chest: Evaluation through the lung bases reveals no focal opacity, pleural effusion or pneumothorax. Subpleural triangular shaped opacity present within the RIGHT middle lobe measuring up to 3 mm, (series 2, image five) suggestive of an intrapulmonary lymph node stable in comparison to examination dated 05/16/2017. Heart size is within normal limits. Large hiatal hernia containing fluid and air similar in comparison to the previous examination. Abdomen and pelvis: The liver, spleen, bilateral kidneys and bilateral adrenal glands are within normal limits. Atrophic appearance of the pancreas otherwise appears to be within normal limits. Surgical clips at the gallbladder fossa status post cholecystectomy. The vessels are normal in caliber. No abdominopelvic lymph nodes are noted to be pathologically enlarged by CT measurement criteria. The small and large bowel is within normal limits without abnormal bowel wall thickness or bowel dilation. Diverticular disease without findings to suggest diverticulitis. No free air. No free abdominopelvic fluid collections. The appendix is within normal limits. The osseous structures reveal degenerative change. Grade 1 anterolisthesis of L4 relative to L5 similar in appearance to the previous examination. Lumbar spine stabilization hardware. Small ventral upper abdominal fat-containing hernia unchanged in appearance since the previous examination. Narrow based opening measuring 14 mm, (series 2, image 20). IMPRESSION: 1. Large hiatal hernia similar in appearance to the previous examination. 2. Diverticular disease without findings to suggest diverticulitis. Electronically signed by: Irene Odell MD 08/05/2017 6:25 PM [facility] Workstation: [id number]
== END | disposition home or self-care (01) ==
LOC: CT 16:55
PROVIDERS: ATTEND Nurse Practitioner Family
DX: K44.9 Diaphragmatic hernia without obstruction or gangrene (principal)

== ENCOUNTER → 2019-03-19 | Outpatient (CLI) | payer OTHER ==
--- NOTE | 2019-03-21 01:40 | RAD ---
PROCEDURE: XR Abdomen Series CLINICAL HISTORY: 78 years Female GENERALIZED ABDOMINAL PAIN TECHNIQUE: One view of the chest and two views of the abdomen are provided. COMPARISON: No prior exams provided for comparison. FINDINGS: Calcified right apical granuloma. The lungs are otherwise clear without focal consolidation, effusion, or pneumothorax. The cardiomediastinal silhouette and central pulmonary vasculature are normal. Hiatal hernia again noted. Otherwise nonspecific bowel gas pattern without evidence of obstruction or free air. Surgical clips in the right upper quadrant and pelvis. Postsurgical changes at L3-L4 and L4-L5 lumbar scoliosis. No visualized acute osseous abnormality. IMPRESSION: No acute findings. Chronic findings as described. Electronically signed by: Yoko Berry MD 03/21/2019 1:39 AM CDT
== END ==
LOC: LAB.O 15:21
PROVIDERS: ATTEND Nurse Practitioner Family
DX: K44.9 Diaphragmatic hernia without obstruction or gangrene (principal); Z98.890 Other specified postprocedural states

== ENCOUNTER → 2019-05-18 | Outpatient (CLI) | payer OTHER | LOC: LAB.O 16:50 | PROVIDERS: ATTEND Nurse Practitioner Family | DX: G45.8 Other transient cerebral ischemic attacks and related syndromes (principal) ==

== ENCOUNTER → 2019-05-27 | Outpatient (CLI) | payer OTHER ==
--- NOTE | 2019-05-27 10:14 | CT ---
EXAM DESCRIPTION: Head w/wo Contrast CLINICAL HISTORY: OTHER TRANSIENT CEREBRAL ISCHEMIC ATTACKS AND RELATED SYNDROMES COMPARISON: None available TECHNIQUE: CT brain is performed prior to and following IV administration of routine adult dose of nonionic iodinated IV contrast. FINDINGS: Ventricles and sulci are unremarkable. There is no hemorrhage or mass. There are no white matter abnormalities detected. The calvarium is unremarkable. The visualized paranasal sinuses and the mastoids are clear. After IV contrast, there is normal enhancement of intracranial vessels. Normal delatorre-white matter differentiation. No pathologic brain parenchymal enhancement. No enhancing intracranial mass. IMPRESSION: No diagnostic abnormality on pre and postcontrast imaging of the brain. This exam was performed according to our departmental dose-optimization program, which includes automated exposure control, adjustment of the mA and/or kV according to patient size and/or use of iterative reconstruction technique. Electronically signed by: Simone Ramirez MD 05/27/2019 10:13 AM CDT
== END ==
LOC: CT 09:02
PROVIDERS: ATTEND Nurse Practitioner Family
DX: G45.8 Other transient cerebral ischemic attacks and related syndromes (principal)

== ENCOUNTER → 2020-05-09 | Outpatient (CLI) | payer OTHER ==
--- NOTE | 2020-05-09 16:20 | CT ---
EXAM DESCRIPTION: Upper Extremity CLINICAL HISTORY: 79 years Female, LOCALIZED PRIMARY ARTHRITIS OF LEFT SHOULDER REGION TECHNIQUE: This exam was performed according to our departmental dose-optimization program, which includes automated exposure control, adjustment of the mA and/or kV according to patient size and/or use of iterative reconstruction technique. COMPARISON: December 07, 2019 FINDINGS: Visualized chest is clear. No axillary adenopathy. No fluid collection or mass identified. 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 Obliteration of the glenohumeral joint space with formation of subchondral cysts. Large inferiorly projecting humeral head osteophyte. Subcortical cysts in the posterolateral humeral head. Fatty atrophy of the supraspinatus and infraspinatus muscles. Mild glenohumeral joint effusion. IMPRESSION: Marked degenerative changes of the left shoulder. No acute osseous abnormality. Electronically signed by: Terrence Patricia MD 05/09/2020 4:18 PM CDT
== END ==
LOC: CT 11:09
PROVIDERS: ATTEND Orthopaedic Surgery
DX: M19.012 Primary osteoarthritis, left shoulder (principal)

== ENCOUNTER → 2020-05-30 | Outpatient (CLI) | payer OTHER ==
--- NOTE | 2020-05-31 10:22 | RAD ---
EXAM DESCRIPTION: Chest,2 Views CLINICAL HISTORY: 79 years Female, PRE SURGERY EVALUATION COMPARISON: None Available TECHNIQUE: PA/lateral FINDINGS: There is no cardiac or pulmonary abnormality. The lungs are clear. There is no effusion. Degenerative changes are seen in the thoracic spine. IMPRESSION: 1. Normal two-view chest for age. Electronically signed by: Sonido Bergman MD 05/31/2020 10:20 AM CDT
== END ==
LOC: LAB.O 14:18
PROVIDERS: ATTEND Orthopaedic Surgery
DX: Z01.818 Encounter for other preprocedural examination (principal)

== ENCOUNTER 2020-06-29 05:30 | Inpatient (IN) | payer OTHER ==
[2020-06-29] MEDS ORDERED: SODIUM CHLORIDE 0.9% (FLUSH) 10 ML SYG ONE (05:44)
[2020-06-29] MEDS ORDERED: SODIUM CHLORIDE 0.9% 250ML 250 ML ONE (05:44)
[2020-06-29] MEDS ORDERED: SODIUM CHL 0.9% 100ML MINI-BAG 100 ML IVPB ONE (05:44)
[2020-06-29] MEDS ORDERED: VANCOMYCIN HCL INJ 1,000 MG VIAL IVPB ONE ×3 (05:45→06:54)
[2020-06-29] MEDS ORDERED: ceFAZolin SODIUM 1 GM VIAL ONE (05:45)
[2020-06-29] MEDS ORDERED: LACTATED RINGERS 1,000 ML ONE (05:45)
[2020-06-29] MEDS ORDERED: CLINDAMYCIN IV 900MG 50 ML IVPB ONE (06:29)
[2020-06-29] MEDS ORDERED: BUPIVACAINE LIPOSOME 13.3 MG/ML VIAL INJ ONE (06:29)
[2020-06-29] MEDS ORDERED: LACTATED RINGERS 1,000 ML IVS ONE (06:35)
[2020-06-29] MEDS ORDERED: MIDAZOLAM INJ 2 MG/2 ML VIAL ONE (06:44)
[2020-06-29] MEDS ORDERED: TRANEXAMIC ACID 1,000 MG/10 ML VIAL IV ONE (06:44)
[2020-06-29] MEDS ORDERED: ROCURONIUM BROMIDE 10 MG/ML VIAL ONE (06:45)
[2020-06-29] MEDS ORDERED: FAMOTIDINE INJ 10 MG/ML VIAL IV ONE (06:46)
[2020-06-29] MEDS ORDERED: SODIUM CHLORIDE 0.9% 100ML 100 ML IVPB ONE (06:46)
[2020-06-29] MEDS ORDERED: TRANEXAMIC ACID 1,000 MG/10 ML VIAL ONE (06:47)
[2020-06-29] MEDS ORDERED: LIDOCAINE 1% 10 ML VIAL INJ ONE (07:00)
[2020-06-29] MEDS ORDERED: MAGNESIUM SULFATE INJ 1 GM/2 ML VIAL ONE (07:00)
[2020-06-29] MEDS ORDERED: PROPOFOL 200 MG/20 ML VIAL IV ONE (07:00)
[2020-06-29] MEDS ORDERED: DEXAMETHASONE INJ 10 MG/ML VIAL ONE (07:00)
[2020-06-29] MEDS ORDERED: fentaNYL CITRATE INJ 50 MCG/ML 2 ML AMP ONE (07:47)
[2020-06-29] MEDS: BUPIVACAINE 0.5% 30 ML VIAL INJ ONE ×2 (08:07→09:04)
[2020-06-29] MEDS: BUPIVACAINE LIPOSOME 13.3 MG/ML VIAL INJ ONE ×2 (08:07→09:04)
[2020-06-29] MEDS: ceFAZolin SODIUM 1 GM VIAL ONE ×2 (08:08→09:06)
[2020-06-29] MEDS: VANCOMYCIN HCL INJ 1,000 MG VIAL IVPB ONE ×2 (08:08→09:06)
[2020-06-29] MEDS ORDERED: CYCLOBENZAPRINE HCL 10 MG TAB PO PRN (09:18)
[2020-06-29] MEDS ORDERED: ACETAMINOPHEN 500 MG TAB PO PRN (09:18)
[2020-06-29] MEDS ORDERED: MAGNESIUM HYDROXIDE 30 ML UD PO PRN (09:18)
[2020-06-29] MEDS ORDERED: TEMAZEPAM 15 MG CAP PO PRN (09:18)
[2020-06-29] MEDS ORDERED: MORPHINE SULFATE INJ 10 MG/ML VIAL IV PRN (09:18)
[2020-06-29] MEDS ORDERED: DEX 5% W/NACL 0.45% 1000ML 1,000 ML IVS PRN (09:18)
[2020-06-29] MEDS ORDERED: ALUMINUM & MAGNESIUM HYDROXIDE 30 ML UD PO PRN (09:18)
[2020-06-29] MEDS ORDERED: PROMETHAZINE HCL INJ 25 MG in SODIUM CHLORIDE 0.9% 50ML 50 ML IVPB PRN (09:18)
[2020-06-29] MEDS ORDERED: ZOLPIDEM TARTRATE 5 MG TAB PO PRN (09:18)
[2020-06-29] MEDS ORDERED: SODIUM CHLORIDE 0.9% (FLUSH) 10 ML SYG IV PRN (09:18)
[2020-06-29] MEDS ORDERED: NALOXONE HCL INJ 0.4 MG/ML VIAL IV PRN (09:18)
[2020-06-29] MEDS ORDERED: TRANEXAMIC ACID INJ 1,000 MG in SODIUM CHLORIDE 0.9% 100ML 100 ML IVPB ONE (09:18)
[2020-06-29] MEDS ORDERED: PROMETHAZINE HCL INJ 12.5 MG in SODIUM CHLORIDE 0.9% 50ML 50 ML IVPB PRN (09:18)
[2020-06-29] MEDS ORDERED: BENZOCAINE-MENTH LOZ (CEPACOL) 1 EA LOZ MT PRN (09:18)
[2020-06-29] MEDS ORDERED: ONDANSETRON INJ 4 MG/2 ML VIAL IV PRN (09:18)
[2020-06-29] MEDS ORDERED: MORPHINE SULFATE INJ 10 MG/ML VIAL IM PRN (09:18)
[2020-06-29] MEDS ORDERED: BISACODYL SUPPOSITORY 10 MG PR PRN (09:18)
[2020-06-29] MEDS ORDERED: ACETAMINOPHEN 325 MG TAB PO PRN (09:18)
[2020-06-29] MEDS ORDERED: MORPHINE PCA 1 MG/ML 100 ML BAG IVPB SCH (09:30)
[2020-06-29] MEDS ORDERED: IV SET AND CAP CHANGE INJ INJ SCH (09:30)
[2020-06-29] MEDS ORDERED: CADD ADMIN SET 1 EA PKG INJ ONE (09:32)
[2020-06-29] MEDS ORDERED: MORPHINE PCA 1 MG/ML 100 ML BAG IVPB ONE (10:02)
[2020-06-29] MEDS ORDERED: ONDANSETRON INJ 4 MG/2 ML VIAL IV ONE (10:08)
[2020-06-29] MEDS ORDERED: HYDROmorphone HCL INJ 2 MG/ML VIAL ONE (10:23)
[2020-06-29] MEDS ORDERED: HYDROmorphone HCL INJ 2 MG/ML VIAL IV ONE ×2 (10:24→10:34)
[2020-06-29] MEDS: CLINDAMYCIN INJ (VIAL) 300 MG in SODIUM CHLORIDE 0.9% 50ML 50 ML IVPB SCH ×2 (11:14→17:19)
--- NOTE | 2020-06-29 15:24 | RAD ---
EXAM DESCRIPTION: Shoulder,Left 2 or More Views CLINICAL HISTORY: 79 years Female, S/P Total Shoulder Arthroplasty Findings: Two images Location: Left shoulder Recent reverse left shoulder arthroplasty. No evidence of hardware complication. No acute fracture or dislocation. Expected postsurgical appearance of the overlying soft tissues. IMPRESSION: Recent left shoulder arthroplasty. No evidence of hardware complication. Electronically signed by: Terrence Patricia MD 06/29/2020 3:22 PM CDT
[2020-06-29] MEDS: CELECOXIB 100 MG CAP PO SCH (17:18)
[2020-06-29] MEDS: VANCOMYCIN HCL INJ 1,000 MG in SODIUM CHLORIDE 0.9% 250ML 250 ML IVPB SCH (17:57)
[2020-06-29] MEDS ORDERED: DOCUSATE CALCIUM 240 MG CAP ONE (19:55)
[2020-06-29] MEDS ORDERED: GABAPENTIN 100 MG CAP ONE (19:56)
[2020-06-29] MEDS ORDERED: ENOXAPARIN SODIUM 30 MG/0.3 ML SYG SUBCU ONE (19:56)
[2020-06-29] MEDS: DOCUSATE CALCIUM 240 MG CAP PO SCH (20:26)
[2020-06-29] MEDS: GABAPENTIN 100 MG CAP PO SCH (20:26)
--- NOTE | 2020-06-29 22:28 | CONS ---
SUPERVISING PHYSICIAN: Huan Jimenez M.D. DATE OF CONSULTATION: 06/29/20 REASON FOR CONSULTATION: Postoperative medical management for total left shoulder arthroplasty. HISTORY OF PRESENT ILLNESS: Ms. Yang is an 79 year-old female with a longstanding history of severe pain and arthritis in her left shoulder. She tried multiple efforts at outpatient management and conservative treatment but failed to respond to any treatment significant to receive any relief. She requested Dr. Bustos for operative management to help with symptom control. She was admitted today for an elective left total shoulder arthroplasty. She had no intraoperative complications. She was seen in the immediate postoperative state in stable condition. I was asked to see the patient for postoperative medical management including hypertension. The patient was in stable condition at time of exam. PAST MEDICAL HISTORY: 1. Hypertension. 2. History of diverticulitis. PAST SURGICAL HISTORY: 1. Colon resection in 1999 due to diverticulitis. 2. Total knee replacements times 2. 3. Laminectomy. 4. Tonsillectomy. CURRENT MEDICATIONS: 1. Tramadol 100 mg b.i.d. 2. Aldactone 25 mg daily. 3. Potassium chloride extended release 20 mEq daily. 4. Omeprazole 20 mg daily. 5. Neurontin 100 mg b.i.d. 6. Lasix 40 mg daily. 7. Aspirin 81 mg daily. 8. Tylenol Arthritis 650 mg b.i.d. ALLERGIES: SULFA ANTIBIOTICS. FAMILY HISTORY: Noncontributory. SOCIAL HISTORY: The patient is . Lives in [place]. She denies any tobacco use. She drinks an alcoholic beverage on occasion socially. She denies any illicit drug use. She has two children. REVIEW OF SYSTEMS: CONSTITUTIONAL: Negative for any fevers, fatigue, chills or unintentional weight loss. HEENT: Negative for ear aches, sore throat, vision changes or headaches. RESPIRATORY: Denies any wheezing, coughing or shortness of breath. CARDIOVASCULAR: Negative for chest pains, palpitations, tachycardia or syncopal episodes. GASTROINTESTINAL: Denies any nausea, vomiting, diarrhea, constipation or abdominal pain. MUSCULOSKELETAL: As noted in History of Present Illness. GENITOURINARY: Denies any dysuria, hematuria, polyuria. SKIN: Denies any lesions, rashes or unexplained changes. NEUROLOGIC: Negative for any headaches, dizziness, seizures, ataxia or other focal deficits. PHYSICAL EXAMINATION: VITAL SIGNS: Temperature 97.3, pulse 64, blood pressure 125/64, respirations 18, satting 95% on room air. GENERAL: The patient is resting comfortably. Does not look to be in any distress. She has been utilizing her pain pump. She did have her block from surgery. Notes her pain is controlled. She is alert. HEENT: Tympanic membranes clear bilaterally. Oropharynx is pink, moist without any lesions. NECK: Supple, nontender with full range of motion. No jugular venous distention noted. CHEST: Lung are clear to auscultation bilaterally without any rhonchi, wheezes or rales. HEART: Regular rate and rhythm without any appreciable murmurs, gallops, or rubs. ABDOMEN: Soft, nontender. Positive bowel sounds. EXTREMITIES: Left upper extremity shoulder is in a sling with bandage in place. Distally pulses radially were strong at 2+. Capillary refill is brisk. NEUROLOGIC: She is alert and oriented times three. SKIN: Warm, pink and dry. LABORATORY: Postoperative H&H is pending. RADIOLOGY: Postoperative for two images of his left shoulder shows recent left shoulder arthroplasty. No evidence of hardware complication. ASSESSMENT: 1. Chronic pain and arthritis left shoulder requiring an elective procedure for a reverse left shoulder arthroplasty, postoperative day #0. Surgery performed by Dr. Yovani Bustos. 2. History of hypertension. PLAN: Will follow the patient postoperatively as she continues with recovery. She will not be able to start any physical therapy until cleared by Dr. Bustos. Will continue to work with pain control. I anticipate either discharging tomorrow or Saturday. I have resumed her medications and started those appropriate to her care. She is on DVT prophylaxis per protocol. Will encourage bronchial hygiene. Until we can transition to outpatient management will continue to monitor and treat as needed. #[id number] [facility]
[2020-06-29] MEDS: ENOXAPARIN SODIUM 30 MG/0.3 ML SYG SUBCU SCH (23:05)
[2020-06-30] MEDS: CLINDAMYCIN INJ (VIAL) 300 MG in SODIUM CHLORIDE 0.9% 50ML 50 ML IVPB SCH ×3 (02:12→17:00)
[2020-06-30] MEDS ORDERED: OMEPRAZOLE CAP 20 MG CAP ONE (05:03)
[2020-06-30] MEDS: VANCOMYCIN HCL INJ 1,000 MG in SODIUM CHLORIDE 0.9% 250ML 250 ML IVPB SCH (06:05)
[2020-06-30] MEDS: OMEPRAZOLE CAP 20 MG CAP PO SCH (06:06)
[2020-06-30] MEDS: CELECOXIB 100 MG CAP PO SCH ×2 (07:47→17:00)
[2020-06-30] MEDS: MAGNESIUM OXIDE 400 MG TAB PO SCH (08:34)
[2020-06-30] MEDS: SPIRONOLACTONE 25 MG TAB PO SCH (08:34)
[2020-06-30] MEDS: FUROSEMIDE 40 MG TAB PO SCH (08:34)
[2020-06-30] MEDS: GABAPENTIN 100 MG CAP PO SCH ×2 (08:34→21:01)
[2020-06-30] MEDS: ASPIRIN (ENTERIC COATED) 81 MG TAB PO SCH (08:34)
[2020-06-30] MEDS: POTASSIUM CHLORIDE 20 MEQ TAB PO SCH (08:34)
[2020-06-30] MEDS ORDERED: NON-FORMULARY MEDICATION 1 EA MIS (Omeprazole [Omeprazole] 20 MG) PO SCH (09:00)
[2020-06-30] MEDS ORDERED: FUROSEMIDE 40 MG PO SCH (09:00)
[2020-06-30] MEDS ORDERED: NON-FORMULARY MEDICATION 1 EA MIS (Potassium Chloride [Potassium Chloride Er] 20 MEQ) PO SCH (09:00)
--- NOTE | 2020-06-30 11:15 | PN ---
DATE: 06/30/20 SUBJECTIVE: Ms. Yang is doing well. She has no pain right now. OBJECTIVE: Afebrile. Vital signs stable. The block which she had is still in effect. She has sensation that is intact over the lateral deltoid. ASSESSMENT: Status post reverse shoulder arthroplasty. PLAN: The plan at this point is for her to begin range of motion today. #[id number] [facility]
[2020-06-30] MEDS: ENOXAPARIN SODIUM 30 MG/0.3 ML SYG SUBCU SCH ×2 (11:26→23:45)
--- NOTE | 2020-06-30 11:50 | PN ---
SUPERVISING PHYSICIAN: Mariana Jimenez MD DATE: 06/30/20 SUBJECTIVE: The patient is lying in bed. She is talking to her . We discussed her discharge plan and she will have outpatient rehab as instructed by Dr. Bustos in [place] at [facility]. She has no complaints of chest pain, shortness of breath, nausea or vomiting. OBJECTIVE: VITAL SIGNS: Temperature 97.6, blood pressure 104/63, respiratory rate 18, O2 saturation 97%. RESPIRATORY: Essentially clear to auscultation bilaterally. CARDIAC: Regular rate and rhythm. EXTREMITIES: She has a sling on her left arm. Her bilateral radial pulses are +2. Good capillary refill on the left hand. NEUROLOGIC: Awake, alert and oriented times three. LABORATORY: Hemoglobin 12.2, hematocrit 36.9. All other labs and films have been reviewed via the EMR. ASSESSMENT: 1. Chronic pain and arthritis left shoulder requiring an elective procedure for a reverse left shoulder arthroplasty, postoperative day #1. Surgery performed by Dr. Yovani Bustos, orthopedic surgeon. 2. History of hypertension. PLAN: We will continue present supportive care. Orthopedic issues will be per Dr. Bustos. He will clear her for physical therapy and we will go along with his recommendations. Hopefully, she can be discharged home tomorrow with physical therapy. We will continue to monitor the patient closely and follow as needed. #[id number] [facility]
[2020-06-30] MEDS: SODIUM CHLORIDE 0.9% (FLUSH) 10 ML SYG IV SCH (21:01)
[2020-06-30] MEDS: DOCUSATE CALCIUM 240 MG CAP PO SCH (21:01)
[2020-06-30] MEDS: HYDROcodone 5MG/APAP 325MG 1 EA TAB PO PRN (21:01)
[2020-06-30] MEDS: traMADol HCL 50 MG TAB PO PRN (23:56)
[2020-07-01] MEDS: CLINDAMYCIN HCL CAP 150 MG CAP PO SCH ×2 (00:53→09:34)
[2020-07-01] MEDS: CLINDAMYCIN INJ (VIAL) 300 MG in SODIUM CHLORIDE 0.9% 50ML 50 ML IVPB SCH ×2 (00:53→09:11)
[2020-07-01] MEDS ORDERED: HYDROcodone 5MG/APAP 325MG 1 EA TAB ONE (01:13)
[2020-07-01] MEDS: HYDROcodone 5MG/APAP 325MG 1 EA TAB PO PRN ×3 (01:15→09:57)
[2020-07-01] MEDS: OMEPRAZOLE CAP 20 MG CAP PO SCH (05:36)
[2020-07-01] MEDS: traMADol HCL 50 MG TAB PO PRN (07:20)
[2020-07-01] MEDS: CELECOXIB 100 MG CAP PO SCH (07:20)
[2020-07-01] MEDS: FUROSEMIDE 40 MG TAB PO SCH (08:47)
[2020-07-01] MEDS: MAGNESIUM OXIDE 400 MG TAB PO SCH (08:48)
[2020-07-01] MEDS: SPIRONOLACTONE 25 MG TAB PO SCH (08:48)
[2020-07-01] MEDS: GABAPENTIN 100 MG CAP PO SCH (08:48)
[2020-07-01] MEDS: POTASSIUM CHLORIDE 20 MEQ TAB PO SCH (08:48)
[2020-07-01] MEDS: ASPIRIN (ENTERIC COATED) 81 MG TAB PO SCH (08:48)
[2020-07-01] MEDS: SODIUM CHLORIDE 0.9% (FLUSH) 10 ML SYG IV SCH (08:49)
[2020-07-01] MEDS: ENOXAPARIN SODIUM 30 MG/0.3 ML SYG SUBCU SCH (09:57)
[2020-07-01 11:25] VITALS: BP 130/68; TEMP 97.4; O2SAT 96
--- NOTE | 2020-07-01 13:17 | DS ---
SUPERVISING PHYSICIAN: Mariana Jimenez MD DISCHARGE DIAGNOSIS: 1. Chronic pain and arthritis to the left shoulder requiring an elective procedure for a reverse left shoulder arthroplasty, postoperative day #2. Surgery performed by Dr. Yovani Bustos, orthopedic surgeon. 2. History of hypertension. HISTORY OF PRESENT ILLNESS: This is an 79-year-old female patient who was admitted to the hospital on the day of he resurfaced. She has a longstanding history of severe pain and arthritis in her left shoulder. She tried multiple efforts at outpatient management and conservative treatment but failed to respond to any treatment significant to gain any relief. She requested Dr. Bustos for operative intervention. She was admitted to the hospital on the day of surgery for left total shoulder arthroplasty. She had no intraoperative complications. She was admitted to the Floor postoperatively in stable condition. HOSPITAL COURSE: The patient was admitted in stable condition. Her home medications were restarted and she was followed by Dr. Bustos for surgical issues. Today, she has been cleared for discharge and she will be discharged home in stable condition. LABORATORY: Postoperative hemoglobin 12.9, hematocrit 36.9. Urine drug screen was negative. RADIOLOGY: Per the EMR. DISCHARGE PLAN: The patient will be discharged home in stable condition. She is to resume her previous diet and increase her activity as per physical therapy. She is to go to physical therapy at [facility] in [place]. She is to followup with Dr. Bustos on 07/14/20 at 10:30 AM. She is to resume her previous medications as ordered. Dr. Bustos has given her some hydrocodone for pain control. She should return to the hospital or followup with Dr. Bustos for any problems or complications. DISCHARGE MEDICATIONS: 1. Tramadol. 2. Gabapentin. 3. Spironolactone. 4. Omeprazole. 5. Potassium chloride. 6. Furosemide. 7. Aspirin. 8. Acetaminophen. 9. Hydrocodone. #[id number] [facility]
--- NOTE | 2020-07-06 10:18 | OP ---
DATE OF PROCEDURE: 06/29/20 PREOPERATIVE DIAGNOSIS: 1. Left shoulder osteoarthritis. 2. Left shoulder rotator cuff syndrome. POSTOPERATIVE DIAGNOSIS: 1. Left shoulder osteoarthritis. 2. Left shoulder rotator cuff syndrome. PROCEDURE: 1. Reverse shoulder arthroplasty. SURGEON: Yovani Bustos MD. BIT GRINDER: Nirmal Robertson CST, SA-C. ANESTHESIA: General anesthesia. COMPLICATIONS: None. FINDINGS: 1. Severe osteoarthritis of the shoulder. 2. Rupture of the supraspinatus with rupture of the subscapularis as well. INDICATION: Ms. Yang has a history of severe shoulder pain that has been getting progressively worse. She has tried conservative measures, however, has failed to gain relief. Because of her ongoing pain and failure of conservative measures, the patient has requested operative intervention. After discussing the risks, benefits and alternatives to that, the patient gave informed consent for that. PROCEDURE: The patient was brought to the Operating Room and placed in the supine position. General anesthesia was induced. The patient was transitioned into the beach chair position. Following that,the arm and shoulder were then sterilely prepped and draped. An incision was made at the deltopectoral interval and dissection was carried down to the interval. The cephalic vein was identified and the deltoid was retracted. The clavipectoral fascia was incised and retractors were placed below the conjoint tendon and the deltoid. The remaining part of the subscapularis was elevated taking care to remain intracapsular and the proximal humerus was exposed. An external cutting guide was used and applied to the humerus and the proximal humeral cut was made. Sequential reaming was then undertaken followed by broaching. A size 12 stem was found to fit with good cortical contact. The glenoid was then exposed and the remaining biceps tendon was removed, following by the glenoid labrum. A guidewire was placed approximately 12 mm from the inferior edge of the glenoid. Following that, sequential reaming was performed to get a bleeding bony bed on the inferior aspect of the glenoid. Baseplate was applied and four peripheral locking screws were drilled, measured and placed. The 32 mm head was placed and the proximal humeral cup was placed. The shoulder was reduced and taken through a range of motion. There was no impingement, nor was there any noted instability. The shoulder was dislocated and the trial components were removed. It was very thoroughly irrigated and after irrigation, the final component was impacted. After that, it was reduced again and taken through a range of motion and there was no impingement. Subsequent to that, the wound was very thoroughly and the deltopectoral interval was reapproximated. The skin was closed with a combination of running and interrupted subcuticular stitches. Sterile dressings were placed. The patient was placed in a sling, awoken from anesthesia and taken to Recovery. POSTOPERATIVE PLAN: The patient will be admitted to begin physical therapy on postoperative day 1. #[id number] [facility]
== END 2020-07-01 11:20 | disposition home or self-care (01) | DRG 483 ==
LOC: AMB 05:30 → MS 10:50 → OBSVTOIN 10:50 → INTOOBSV 10:50
PROVIDERS: ADMIT Orthopaedic Surgery; ATTEND Nurse Practitioner Acute Care
PROC: 0RRK00Z Replacement of Left Shoulder Joint with Reverse Ball and Socket Synthetic Substitute, Open Approach (ICD-10-PCS; principal; 2020-06-29 07:07)
DX: M19.012 Primary osteoarthritis, left shoulder (principal); M25.812 Other specified joint disorders, left shoulder; G89.29 Other chronic pain; I10 Essential (primary) hypertension; E66.9 Obesity, unspecified; Z90.49 Acquired absence of other specified parts of digestive tract; Z96.643 Presence of artificial hip joint, bilateral; Z79.82 Long term (current) use of aspirin; Z79.891 Long term (current) use of opiate analgesic; Z88.2 Allergy status to sulfonamides; Z79.899 Other long term (current) drug therapy; Z68.32 Body mass index [BMI] 32.0-32.9, adult